=== PATIENT | female | born 1940 | race Two or more races ===

== ENCOUNTER 2016-09-05 12:53 | Emergency (ER) | payer OTHER, MEDICAID ==
[~2016-09-05] VITALS: Ht 160 cm; Wt 78.5 kg
[2016-09-05 13:44] VITALS: BP 99/52
== END 2016-09-05 16:57 | disposition home or self-care (01) ==
LOC: ER 12:53
DX: S29.011A Strain of muscle and tendon of front wall of thorax, initial encounter (principal); S00.83XA Contusion of other part of head, initial encounter; S60.211A Contusion of right wrist, initial encounter; I10 Essential (primary) hypertension; W01.0XXA Fall on same level from slipping, tripping and stumbling without subsequent striking against object, initial encounter; Y93.89 Activity, other specified; Y99.8 Other external cause status; Y92.091 Bathroom in other non-institutional residence as the place of occurrence of the external cause
CPT/HCPCS: 70486; 71101; 73110

== ENCOUNTER 2017-05-27 12:27 | Emergency (ER) | payer OTHER, MEDICAID ==
[~2017-05-27] VITALS: Ht 157.5 cm; Wt 75.7 kg
[2017-05-27] MEDS ORDERED: HYDR-4683 PO (21:00)
[2017-05-27] MEDS ORDERED: ALEN70TA2 PO (21:02)
[2017-05-27] MEDS ORDERED: RANI150C11 PO (21:02)
[2017-05-27] MEDS ORDERED: LISI-646 PO (21:02)
[2017-05-27] MEDS ORDERED: AML5T PO (21:02)
[2017-05-27] MEDS ORDERED: ATOR10TA PO (21:02)
[2017-05-27 21:31] LABS: Basophils # (auto) 0.1 uL; Basophils % (auto) 0.7 % (0.0-2.0); Eosinophils # (auto) 0 uL; Eosinophils % (auto) 0.5 % (0.0-7.0); Hematocrit 44.5 % (36.0-46.0); Hemoglobin 14.8 g/dL (12.2-16.2); Lymphocytes # (auto) 2.1 uL; Lymphocytes % (auto) 26.5 % (10.0-50.0); Mean Corpuscular Hemoglobin 27.7 pg (28.0-32.0); Mean Corpuscular Hgb Conc. 33.2 g/dL (32.0-36.0); Mean Corpuscular Volume 83.5 fL (80.0-100.0); Monocytes # (auto) 0.7 uL; Monocytes % (auto) 8.5 % (0.0-12.0); Neutrophils % (auto) 63.8 % (37.0-80.0); Nucleated Red Blood Cells % 0.1 %; Platelet Count (auto) 284 10^3/uL (140-450); Red Blood Cells 5.33 10^6/uL (4.0-5.20); Red Cell Distribution Width 14.7 % (11.8-14.3); White Blood Cell 7.8 10^3/uL (4.4-10.8)
[2017-05-27 22:08] LABS: Potassium 3.7 mmol/L (3.5-5.1)
[2017-05-27 22:09] LABS: Albumin 4.4 g/dL (3.4-5.0); BUN/Creatinine Ratio 22.5; Bilirubin, Total 0.6 mg/dL (0.2-1.0); Calcium 9.9 mg/dL (8.5-10.1); Total Protein 8.5 g/dL (6.4-8.2)
[2017-05-27 22:49] LABS: Urine Bacteria NONE SEEN /hpf (None Seen); Urine Blood 1+ /uL (Negative); Urine Mucus FEW (None Seen); Urine Specific Gravity 1.026 (1.001-1.035); Urine WBC 15 /hpf (0 - 5)
[2017-05-28] MEDS ORDERED: MORPHINE SULF INJ 2 MG/ML SYRINGE 1ML IM ONE
[2017-05-28] MEDS ORDERED: ONDANSETRON HCL 4 MG/2 ML VIAL IM ONE
[2017-05-28 00:15] VITALS: BP 158/82
== END 2017-05-27 23:48 | disposition home or self-care (01) ==
LOC: ER 12:27
DX: S39.012A Strain of muscle, fascia and tendon of lower back, initial encounter (principal); M54.17 Radiculopathy, lumbosacral region; I10 Essential (primary) hypertension; Z96.652 Presence of left artificial knee joint; Z90.49 Acquired absence of other specified parts of digestive tract; M54.42 Lumbago with sciatica, left side; X58.XXXA Exposure to other specified factors, initial encounter; Y93.89 Activity, other specified; Y92.89 Other specified places as the place of occurrence of the external cause; Y99.8 Other external cause status
CPT/HCPCS: 36415; 73502; 73562; 74176; 80053; 81001; 83690; 85025; 96372